=== PATIENT | female | born 1975 | race Caucasian/White ===

== ENCOUNTER → 2019-11-04 | Outpatient (CLI) | payer OTHER ==
[~2019-11-04] MED LIST: OMEPRAZOLE40 MG PO
--- NOTE | 2019-11-11 15:08 | PATH ---
[address] [address] PATHOLOGY RPT PROCEDURE Name: GAVIOTA CHADWICK V Room: [facility] YOHAN Kyle#: [id number] Admission: 11/04/19 Date of : 71 Discharge: Report #: [id number] Path Case #: [id number] [facility] Accession Number: [id number] . 01 Material submitted: . breast - RIGHT BREAST MASS, 11:00, 5CMFN. Modifiers: right, 11:00 . 01 Clinical history: . Right breast mass 11:00 5 cm FN 1.3 x 0.8 x 1.4 cm . 02 Diagnosis: Right breast mass, 11:00, 5.0 cm from nipple, image-guided core biopsies: - INFILTRATING DUCTAL ADENOCARCINOMA, LOW GRADE, SPANNING AT LEAST 11 MM. (SEE COMMENT) . (CRISTIAN:naren; 11/05/2019) [facility] 11/05/2019 1239 Local . 02 Comment: Specimen type: Image-guided core biopsies Tumor site: Right breast, 11:00, 5.0 cm from nipple Tumor quantitation: Approximately 75% of submitted tissues Histologic type: Ductal adenocarcinoma Histologic grade: Low grade (I/III) Tubules, nuclei and mitoses: 1, 2, 1 LVSI: Not identified Microcalcifications: Identified in invasive tumor and non-neoplastic breast Markers: Breast tumor profile pending Block: A3 . (CRISTIAN:mml; 11/05/2019) . . Prominent ductal carcinoma in situ, nuclear grade I, cribriform type is seen in association with the infiltrating tumor. Breast tumor profile studies are pending on A3 and will be the subject of an addendum report. . Reviewed with Dr. Odilia Plummer, who agrees with the diagnosis. . Colleen Pink ([facility] breast navigator) notified at approximately 1615 on 11/05/2019. . (CRISTIAN:mml; 11/05/2019) . 02 Addendum: . Special studies report received from [facility], [address] [place] [address], [address], [place], [address], on case [id number], [place] [address] PATHOLOGY RPT PROCEDURE Name: GAVIOTA CHADWICK V Room: [facility]#: [id number] Admission: 11/04/19 Date of : 71 Discharge: Report #: [id number] Path Case #: [id number] labeled with their number [id number]*, dated . . Breast/Prognostic Marker Analysis . Specimen Site: Rt Breast Mass,11:00, 5 cm FN, Breast Carcinoma (Biopsy) Specimen ID #: [id number] . ER (Estrogen Receptor) Present/Positive Percent: 70.00% Analysis: Manual Comments: Staining intensity: Weak to moderate . LA (Progesterone Receptor) Present/Positive Percent: 95.00% Analysis: Manual Comments: Staining intensity: Strong . HER2 Not Over-Expressed Score: 1+ Analysis: Manual . Ki-67 Borderline Proliferation Percent: 20.00% Analysis: Manual . Time to Fixation (Cold Ischemic Time): Immediate Duration of Fixation: 21 hours Type of Fixative: 10% Neutral Buffered Formalin . Comments: ER/PgR testing at [facility] is performed in compliance with the ASCO/CAP Clinical Practice Guidelines. If the result for ER is less than 1% it is reported as Negative; if the ER result is 1-10% it is reported as Low Positive; if the ER result is greater than 10% it is reported as Positive. If the result for PgR is less than 1% it is reported as Negative; if the PgR result is equal to or greater than 1%, it is reported as Positive. . REFERENCE: Dottie ALSTON, Ofelia WILEY, Arleth M, et al. Estrogen and progesterone receptor testing in breast cancer. ASCO/CAP guideline update. Arch Pathol Lab Med. 2020; 144:545-563. . Whole slide image capture is performed using [employer] ([employer]) platform. Image analysis, if ordered, is performed using [place] [address] PATHOLOGY RPT PROCEDURE Name: GAVIOTA CHADWICK V Room: [facility]#: [id number] Admission: 11/04/19 Date of : 71 Discharge: Report #: [id number] Path Case #: [id number] . at [facility]. Jessica Londono M.D. Pathologist . . . Methodology The HER2 Receptor protein expression is analyzed using the [place] HER2 rabbit monoclonal antibody (clone 4B5). This assay is used for diagnostic determination of the HER2 protein over-expression in paraffin embedded, formalin fixed breast cancer tissue on the Peckham Benchmark. The specimen is processed using a secondary antibody-HRP conjugate detection system. The membrane staining of the tumor is determined either by manual score or image analysis. This antibody is intended for in vitro diagnostic use. The score is reported as 0, 1+, 2+, or 3+. This test is used for clinical purposes. . A rabbit monoclonal antibody (clone SP1) that recognized the Estrogen Receptor is used to perform immunohistochemistry on routinely fixed (formalin) paraffin embedded tissue on the Pe[place]ham Benchmark. The specimen is processed using a secondary antibody-HRP conjugate detection system. The percentage of stained tumor nuclei is determined either manually or by image analysis. This test is intended for in vitro diagnostic use. This test is used for clinical purposes. . A rabbit monoclonal antibody (clone 1E2) that recognized the Progesterone Receptor is used to perform immunohistochemistry on routinely fixed (formalin) paraffin embedded tissue on the [place]ckham Benchmark. The specimen is processed using a secondary antibody-HRP conjugate detection system. The percentage of stained tumor nuclei is determined either manually or by image analysis. This test is intended for in vitro diagnostic use. This test is used for clinical purposes. . A rabbit monoclonal antibody (clone 30-9) that recognized Ki67 is used to perform immunohistochemistry on routinely fixed (formalin) paraffin embedded tissue on the [place]ham Benchmark. The specimen is processed using a secondary antibody-HRP conjugate detection system. The percentage of stained tumor nuclei is determined either manually or by image analysis. This test is intended for in vitro diagnostic use. This test is used for clinical purposes. . Intended Use: This antibody is intended for in vitro diagnostic (IVD) use. HER2 (4B5) is a rabbit monoclonal antibody intended for the semi-quantitative detection of HER2 antigen in sections of formalin-fixed, paraffin embedded normal and [place] [address] PATHOLOGY RPT PROCEDURE Name: GAVIOTA CHADWICK V Room: [facility]#: [id number] Admission: 11/04/19 Date of : 71 Discharge: Report #: [id number] Path Case #: [id number] This antibody is intended for in vitro diagnostic (IVD) use. Estrogen Receptor (ER) (SP1) is a rabbit monoclonal antibody (IgG) that is intended for the qualitative detection of estrogen receptor (ER) antigen in sections of formalin-fixed, paraffin-embedded tissue. ER is a rabbit monoclonal antibody that recognizes human estrogen receptor alpha. . This antibody is intended for in vitro diagnostic (IVD) use. Progesterone Receptor (LA) (1E2) is a rabbit monoclonal antibody (IgG) that is intended for the qualitative detection of progesterone receptor (LA) antigen in sections of formalin fixed, paraffin embedded tissue. LA is a rabbit monoclonal antibody that recognizes the A and B forms of the human progesterone receptor. . This antibody is intended for in vitro diagnostic (IVD) use. Ki-67 (30-9) is a rabbit monoclonal antibody (IgG) directed against C-terminal portion of Ki-67 antigen. Staining for Ki-67 can be used to aid in assessing the proliferative activity of normal and neoplastic tissue. Ki-67 is a nuclear protein expressed in proliferating cells. During the cell cycle, the Ki-67 antigen is present in the G1, S, G2 and M phase but is absent in the G0 (quiescent phase). . . Disclaimer: This Test was performed by [facility]. at [facility], [address]. . [facility] is a business unit of [facility]. a wholly-owned subsidiary of [employer]. . This assay has not been validated on decalcified tissues. Results should be interpreted with caution if this specimen was decalcified given the likelihood of false negativity on decalcified specimens. . Any image(s) that accompany this report is/are a provider service representative image(s) only and should not be used to render a diagnosis. . This interpretation is contingent on the specimen and the clinical information received. . For any special tests/stains performed, known positive cells or tissues are tested with each marker and examined to ensure positivity. Positive and negative internal controls, if present, react appropriately. . This analysis is an adjunct to the evaluation of the referring physician and does not represent a final diagnosis. . The immunohistochemistry tests performed at [facility] [employer] were validated on tissue fixed in 10% neutral buffered [address] [place] [address] PATHOLOGY RPT PROCEDURE Name: GAVIOTA CHADWICK V Room: [facility]#: [id number] Admission: 11/04/19 Date of : 71 Discharge: Report #: [id number] Path Case #: [id number] formalin. The performance characteristics of the tests performed on tissue processed in other fixatives is not known. . HER2 testing at [facility], [employer] is performed in compliance with the 2018 updated ASCO/CAP Clinical Practice Guideline Focused Update. If the result is EQUIVOCAL (2+), it must be confirmed by an alternative assay such as FISH or Dual GRACE. REF: Tony BRAVO, LUIZ Gilbert et al: Human Epidermal Growth Factor Receptor 2 Testing in Breast Cancer: ASCO/CAP Clinical Practice Guideline Focused Update. J Clin Oncol 36:8311-8487, 2018. . HER2 and ER/LA ASCO/CAP guidelines require fixation in neutral buffered formalin for a minimum of 6 and a maximum of 72 hours. Fixation times less than 6 hours may not adequately preserve cell proteins. Fixation times longer than 72 hours may cause excess cross-linking of proteins reducing the antigen available for staining. Either scenario can cause reduced staining; hence false negative results are possible and should be considered for these situations if the HER2 IHC score is less than 3+ or ER or LA is negative (no staining or <1% positive). It is recommended that specimens fixed longer than 72 hours with HER2 IHC scores less than 3+ be confirmed by HER2 FISH or Dual GRACE. The time from biopsy/excision to fixation in formalin (cold ischemic time) must be less than 1 hour. Time to fixation (cold ischemic time) greater than 1 hour should be interpreted with caution. HER2 testing, mainly HER2 by FISH, is particularly vulnerable since excessive cold ischemic time results in preferential loss of HER2 probe signals that may lead to false negative results. . SCORE STAINING PATTERN IN TUMOR CELLS INTERPRETATION RESULTS 0 No staining observed or incomplete, faint membrane staining in less than or equal to 10% of tumor cells. Negative 1+ Incomplete, faint membrane staining in greater than 10% of tumor cells. Negative 2+ Weak to moderate complete membrane staining observed in greater than 10% of tumor cells. Equivocal* *Must be confirmed by alternative assay (IHC/FISH/Dual GRACE) 3+ Intense, complete membrane staining in greater than 10% of tumor cells. Positive . A complete copy of the report is on file. . Professional and Technical services performed by [facility]. at [address] [address], [place] [address]. [place] [address] PATHOLOGY RPT PROCEDURE Name: GAVIOTA CHADWICK V Room: [facility]#: [id number] Admission: 11/04/19 Date of : 71 Discharge: Report #: [id number] Path Case #: [id number] . (CRISTIAN:amj 11/08/2019) . LBQ/11/08/2019 Addendum Electronically Signed by Shorty Szymanski MD, Pathologist . 02 Electronically signed: . Shorty Szymanski MD, Pathologist NPI- [id number] . 01 Gross description: . The specimen is received in formalin, labeled "Gaviota Chadwick, right breast mass "and consists of multiple yellow david fibroadipose breast needle cores measuring from 1.1-2.4 cm in length and 0.3 cm in diameter. They were collected at 10:30 AM in placed in formalin at 10:30 AM. The cold ischemic time is less than 1 minute and total time in formalin is 21 hours. They are entirely submitted in A1-A3. (JM; 11/04/2019) JFQ/JFShannen 11/05/2019 1229 Local . 02 Pathologist provided ICD-10: C50.911 . 02 CPT . 482252 Specimen Comment: A courtesy copy of this report has been sent to [phone], [phone] Specimen Comment: [phone], Specimen Comment: Report sent to ,DR PINK / DR ELLIS Performed at: [address] [facility] [address], [place], [place] [id number] MD Aroldo Sylvester MD Phone: [phone] Performed at: 02 [facility] [place] [address] [address], [place], [place] [id number] MD Shorty Szymanski MD Phone: [phone]
== END | disposition home or self-care (01) ==
LOC: M.ULTRA 08:29
PROVIDERS: ATTEND Nurse Practitioner Family
DX: N63.11 Unspecified lump in the right breast, upper outer quadrant (principal); C50.411 Malignant neoplasm of upper-outer quadrant of right female breast; Z79.899 Other long term (current) drug therapy

== ENCOUNTER → 2019-11-15 | Outpatient (CLI) | payer OTHER ==
[~2019-11-15] MED LIST changes: +OXYCODONE HCL 55 MG PO
== END ==
LOC: M.LAB 08:21
PROVIDERS: ATTEND Surgery
DX: Z01.818 Encounter for other preprocedural examination (principal); C50.911 Malignant neoplasm of unspecified site of right female breast; Z11.59 Encounter for screening for other viral diseases

== ENCOUNTER → 2019-11-19 | Day surgery (SDC) | payer OTHER ==
[2019-11-19 10:11] LABS: HEMATOCRIT 38.6 % (37.0-47.0); HEMOGLOBIN 13.6 gm/dL (12.0-15.0)
--- NOTE | 2019-11-21 08:41 | OP ---
[address] [address] OPERATIVE REPORT Name: RAFAEL ZIEGLER V Room: [facility].#: [id number] Admission: 11/19/19 Attend Phys: Dalia Branch DO Discharge: Date of : 71 Report #: [id number] THIS REPORT FOR: //name// cc: Penny Blank RNP Penny Blank RNP ~ THIS REPORT FOR: //name// CC: Dalia Moreno MD DICTATED BY: Osbaldo Raymond DO DATE OF SERVICE: 11/19/2019 PREOPERATIVE DIAGNOSIS: Right breast cancer. POSTOPERATIVE DIAGNOSIS: Right breast cancer. SURGEON PERFORMING THE OPERATION: Dalia Branch DO COSURGEON: Osbaldo Raymond, PGY5. GRIND OPERATOR: Tam Lomax MS4. OPERATION PERFORMED: Right breast tag-guided lumpectomy and right sentinel lymph node dissection. FINDINGS: Right breast RFID tag, nuclear medicine uptake at nipple was 7400, uptake on lymph node was 1076. ANESTHESIA: General and local. ESTIMATED BLOOD LOSS: 20 mL. SPECIMEN: Right breast lumpectomy and right superior margin and right sentinel lymph node. COMPLICATIONS: None. INDICATIONS: The patient is a 43-year-old female with newly diagnosed right breast invasive ductal carcinoma that was found on a screening mammogram and subsequent percutaneous biopsy. She was informed of the risks and benefits of lumpectomy and sentinel lymph node biopsy. She also had a consultation with Medical Oncology, she elected to proceed with breast conservation therapy with [address] [address] OPERATIVE REPORT Name: KARLIERAFAEL Arminda Room: [facility].#: [id number] Admission: 11/19/19 Attend Phys: Dalia Branch DO Discharge: Date of : 71 Report #: [id number] plan for postop breast radiation. DESCRIPTION OF PROCEDURE/TECHNIQUE: After informed consent was obtained, the patient was brought to the operating room and placed in supine position. SCDs were on and running. Preoperative antibiotics were given. General anesthesia was administered with an ET tube. The patient was prepped and draped in the usual sterile fashion. A surgical pause was held to confirm proper patient and procedure. A periareolar incision at the superior aspect of the nipple was infiltrated with 0.5% Marcaine, #15 blade was used to make a curvilinear incision along the edge of the areola. The dissection was carried through the subcutaneous fat with guidance from the RFID device. Once the tag was identified, a circumferential specimen was developed around it. The mass was dissected free from the circumferential breast tissue. She had breast tissue that was quite dense in all quadrants. The mass was in the upper outer quadrant. The RFID tag was used to guide dissection until we were deep and circumferentially around the clip. The plane was redeveloped slightly deeper to make sure that the clip was included. Once this was completely circumferentially dissected, it was transected and brought out. It was marked with a short stitch superior and a long stitch lateral. The RFID tag was within the specimen. Because of the appearance of the superior margin being slightly suspicious, an additional superior margin was taken. This was also marked short stitch superior and long stitch lateral. This was taken down using cautery. Once this was removed, both were placed within a transplant container and sent to pathology. Mammography did confirm the clip within the initial specimen. Attention was then turned towards the axilla. The Neoprobe was used to identify uptake at the nipple, which was approximately 7400 and guide our incision for the axilla. The axillary incision was planned in a curvilinear fashion, was injected with 0.5% Marcaine and incised using a #15 blade. Dissection was carried through the subcutaneous fat using cautery. A Weitlaner was used to provide retraction. Blunt dissection, using a Grazyna, was carried out through the clavipectoral fascia until a blue lymphatic channel was identified. This was traced down shortly to a firm lymph node. The Neoprobe was used throughout this dissection and had significant uptake at the identified blue node. The node was circumferentially dissected free from surrounding fatty tissue with a combination of blunt dissection and cautery. Once completely transected, this lymph node was found to have an uptake of 1076. This was passed off as a specimen. The remaining uptake in the axilla did not exceed 10 in value. This wound was irrigated thoroughly. Cautery was used for hemostasis. The lumpectomy incision was also irrigated and was hemostatic. Surgiflo was injected within both incisions to confirm hemostasis. Both incisions were closed in layered fashion using 3-0 Vicryl and 4-0 Monocryl[place] [address] OPERATIVE REPORT Name: RAFAEL ZIEGLER V Room: [facility]#: [id number] Admission: 11/19/19 Attend Phys: Dalia Branch DO Discharge: Date of : 71 Report #: [id number] cleansed and dressed with Dermabond. The patient was emerged from anesthesia, extubated and transferred to PACU in stable condition. <ELECTRONICALLY SIGNED> By: Dalia Branch DO 11/21/19 0841 1533 1616Ckandace Branch DO /nt
--- NOTE | 2019-11-29 12:06 | PATH ---
[address] [address] PATHOLOGY RPT PROCEDURE Name: GAVIOTA CHADWICK V Room: [facility]#: [id number] Admission: 11/19/19 Date of : 71 Discharge: Report #: [id number] Path Case #: [id number] [facility] Accession Number: [id number] . 01 Material submitted: . PART A: breast - RIGHT BREAST LUMPECTOMY, SHORT STITCH SUPERIOR, LONG STITCH LATERAL. Modifiers: right PART B: lymph node - RIGHT SENTINEL LYMPH NODE (1046 ON THE NEOPROBE). Modifiers: right . 01 Clinical history: . Adenocarcinoma right breast A. Superior margin marked with short stitch to match long sup. . 02 Diagnosis: A. Breast "right", lumpectomy: - INVASIVE DUCTAL CARCINOMA; LOW-GRADE (GRADE 1/3), spanning 11 mm in association with prior biopsy site including cylindrical biopsy marker (pT1c). - DUCTAL CARCINOMA IN SITU, DCIS, CRIBRIFORM TYPE (NUCLEAR GRADE I). - Margins negative. - Please see cancer summary below. . B. Lymph node "right sentinel", biopsy: - One lymph node with micrometastasis of ductal adenocarcinoma spanning 0.45 mm, confined to lymph node (pN1mi). See comment. . . Cancer Case Summary - Invasive Carcinoma of the Breast Resection . Procedure - Lumpectomy . Specimen laterality - Right . Tumor site - 11:00, 5 cm from nipple (see [id number]) . Tumor size - 11 mm . Histologic type - Invasive Ductal Carcinoma . Histologic grade - Total score 5/9 (low grade) . Glandular/tubular differentiation - Score 2 . Nuclear pleomorphism - Score 2 . Mitotic rate - Score 1 . Ductal carcinoma in situ ([place]) [place] [address] PATHOLOGY RPT PROCEDURE Name: GAVIOTA CHADWICK V Room: [facility]#: [id number] Admission: 11/19/19 Date of : 71 Discharge: Report #: [id number] Path Case #: [id number] . DCIS pattern - Cribriform (Low Grade) . Margins - Uninvolved by Invasive Carcinoma or DCIS . Invasive Carcinoma - At least 1 cm from closest margin (superior). See comment. . DCIS - At least 1 cm from closest margin (superior). See comment. . Regional lymph nodes . Total number of lymph nodes examined - 1 . Number of sentinel nodes examined - 1 . Number of lymph nodes with macrometastases (> 2 mm) - 0 . Number of lymph nodes with micrometastases (<0.2 mm and >2.0 mm) - 1 . Number of lymph nodes with isolated tumor cells - 0 . Size of largest metastatic deposit - 0.45 mm . Extranodal extension - Not identified . Treatment effect - No known presurgical therapy . Pathologic stage classification . Primary tumor - pT1c (tumor > 10 mm < 20 mm) . Regional lymph nodes - pN1mi (micrometastasis > 0.2 mm and < 2 mm) . Breast biomarker testing - Completed on prior needle biopsy ([id number]) (MLK:adelina/kati; 11/28/2019) [facility] 11/29/2019 1118 Local . 02 Comment: The invasive tumor is seen to frankly extend to the blue inked superior surface in the lumpectomy tissue, however, additional separate tissue specified as superior (per confirmation with Dr. Branch on afternoon of 11/28/2019) results in no malignancy or atypia seen in those tissues such that the final closest approach to a margin is at least 1 cm away. Properly controlled keratin AE1/AE3 immunohistochemical stain performed on B1 highlights the metastatic tumor cells confined to [place] [address] PATHOLOGY RPT PROCEDURE Name: GAVIOTA CHADWICK V Room: [facility]#: [id number] Admission: 11/19/19 Date of : 71 Discharge: Report #: [id number] Path Case #: [id number] The case is seen in co-review by Dr. Shorty Szymanski who concurs with the above diagnosis. . 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 This case was prepared and proofread by Dr. Noel Saavedra and electronically released by Dr. Shorty Szymanski. . 02 Electronically signed: . Shorty Szymanski MD, Pathologist NPI- [id number] . 01 Gross description: . A. The specimen is received in formalin, labeled "Gaviota Chadwick, right breast lumpectomy with superior margin" and consists of a disrupted and oriented 44 g lumpectomy specimen with a long suture lateral and short stitch superior. It measures 5.9 cm L-M, 6.1 cm S-I, 2.4 cm A-P and is inked as follows: superior-blue, inferior-green, medial-red, lateral-yellow, anterior-orange, and posterior-black. It is sectioned from lateral to medial into 14 slices revealing a brown possible mass in slices 9-13 measuring 1.7 x 1.0 cm that abuts the superior margin and approaches remaining margins as follows: 2.0 cm to inferior, 0.6 cm to posterior, 0.4 cm to anterior, greater than 0.5 cm to lateral, and greater than 2 cm to medial. Inferior to the mass is an area of induration. Previous biopsy changes are present including a cylindrical biopsy marker in slice 11. The uninvolved parenchyma is yellow lobulated with no additional mass lesions. [employer] Specialist sections are submitted as follows: . A1: Slice 1 medial, perpendicular A2-A3: Slice 4 A4-A6: Slice 7 A7-A8: Slice 8 A9-A11: Slice 9 A12-A14: Slice 10 A15-A16: Slice 11 A17-A18: Slice 12 A19-20: Slice 13 A21-A22: Slice 14 lateral, perpendicular . Also received is an oriented 11 g segment of yellow orange fibroadipose tissue with a short stitch superior and long lateral. It measures 5.3 cm A-P, 3.3 cm L-M, and 1.0 cm S-I, and is inked as follows: superior-blue, inferior-green, medial-red, lateral-yellow, anterior-orange, and posterior-black. It is serially sectioned from anterior to posterior revealing fibrotic tissue along the medial margin but no gross lesions. The specimen is entirely submitted from anterior to posterior in A23-A31. The specimen was collected on 11/19/2019 with no time in formalin. The time out of formalin is 11:50 PM on 11/20/2019. [place] [address] PATHOLOGY RPT PROCEDURE Name: GAVIOTA CHADWICK V Room: [facility]#: [id number] Admission: 11/19/19 Date of : 71 Discharge: Report #: [id number] Path Case #: [id number] . B. The specimen is received in formalin, labeled "Gaviota Chadwick R sentinel lymph node" and consists of a 1.8 x 1.2 x 0.9 cm lymph node with pink torres cut surfaces. The specimen is entirely submitted in B1. ([facility]; 11/20/2019) [facility]Junior 11/29/2019 1118 Local . 02 Pathologist provided ICD-10: C50.911, D05.11, C77.3 . 02 CPT . 575175, 140470, [id number] Specimen Comment: A courtesy copy of this report has been sent to [phone] Specimen Comment: Report sent to Performed at: [address], [place], [place] [id number] MD Aroldo Sylvester MD Phone: [phone] Performed at: 02 [facility] [address], [place], [place] [id number] MD Shorty Szymanski MD Phone: [phone]
== END | disposition home or self-care (01) ==
LOC: M.SUR 09:25 → M.RAD 10:00 → EDSTATUS 10:00 → M.NUC 10:30 → M.RAD 11:00 → M.NUC 12:00
PROVIDERS: ATTEND Surgery
DX: C50.911 Malignant neoplasm of unspecified site of right female breast (principal); C77.3 Secondary and unspecified malignant neoplasm of axilla and upper limb lymph nodes; R59.0 Localized enlarged lymph nodes